=== PATIENT | male | born 1995 | race Caucasian/White ===

== ENCOUNTER 2018-09-04 11:48 | Emergency (ER) | payer OTHER ==
[~2018-09-04] VITALS: Ht 177.8 cm; Wt 61.2 kg
[2018-09-04] MEDS ORDERED: KETOROLAC TROMETHAMINE 30 MG INJ IM ONE (12:30)
[2018-09-04] MEDS ORDERED: KETOROLAC TROMETHAMINE 30 MG INJ ONE (12:41)
[2018-09-04 13:02] VITALS: BP 128/74
== END 2018-09-04 13:05 | disposition home or self-care (01) ==
LOC: ER 11:48
DX: S92.331A Displaced fracture of third metatarsal bone, right foot, initial encounter for closed fracture (principal); F17.290 Nicotine dependence, other tobacco product, uncomplicated; V28.9XXA Unspecified motorcycle rider injured in noncollision transport accident in traffic accident, initial encounter; Y93.89 Activity, other specified; Y92.89 Other specified places as the place of occurrence of the external cause; Y99.8 Other external cause status
CPT/HCPCS: 29515; 73610; 73630; 96372; 99283; 99406; J1885; A4663